=== PATIENT | female | born 1975 | race Two or more races ===

== ENCOUNTER 2022-10-18 06:05 | Day surgery (SDC) | payer OTHER ==
[2022-10-18] MEDS ORDERED: NEXIUM 24HR20 M1 PO (10:02)
== END 2022-10-18 11:15 | disposition home or self-care (01) ==
LOC: AMB-ENDOS 06:05
PROVIDERS: ATTEND Surgery
DX: K29.60 Other gastritis without bleeding (principal); K44.9 Diaphragmatic hernia without obstruction or gangrene; R10.13 Epigastric pain; Z20.822 Contact with and (suspected) exposure to COVID-19; E66.9 Obesity, unspecified